=== PATIENT | female | born 1930 | race Caucasian/White ===

== ENCOUNTER 2017-08-18 07:47 | Day surgery (SDC) | payer OTHER ==
[~2017-08-18] VITALS: Ht 157.5 cm; Wt 46.3 kg
[2017-08-18] VITALS (8 sets, daily range): BP systolic 138–176; BP diastolic 67–80
--- NOTE | 2017-08-18 07:35 | Pre-Procedure Note/Attestation ---
Pre-Procedure Note/Attestation Complete Prior to Procedure Planned Procedure: left Procedure Narrative: cataract extraction with implant left eye Indications for Procedure Pre-Operative Diagnosis: cataract left eye Attestation I attest that I discussed the nature of the procedure; its benefits; risks and complications; and alternatives (and the risks and benefits of such alternatives ), prior to the procedure, with the patient (or the patient's legal personal service representative). I attest that, if there was a reasonable possibility of needing a blood transfusion, the patient (or the patient's legal personal service representative) was given the [facility] standardized written summary, pursuant to the [employer] Trudy Blood Safety Act ([place] Health and Safety Code # 1645, as amended). I attest that I re-evaluated the patient just prior to the surgery and that there has been no change in the patient's H&P, except as documented below: MATHEUS NAM Aug 18, 2017 07:35
[2017-08-18] MEDS ORDERED: Tobradex Opth Susp 2.5ml ONE (08:38)
[2017-08-18] MEDS ORDERED: Vigamox Opth Soln 3ml ONE (08:38)
[2017-08-18] MEDS ORDERED: Tropicamide 1% Opth 15ml Soln ONE (08:38)
[2017-08-18] MEDS ORDERED: Akten 3.5% 1ml Btl ONE (08:38)
[2017-08-18] MEDS ORDERED: Phenylephrine 2.5% Op 2ml Soln ONE (08:38)
[2017-08-18] MEDS ORDERED: Flurbiprofen 0.03% Opth Sol 2.5ml ONE (08:44)
[2017-08-18] MEDS: Tobradex Opth Susp 2.5ml LEFT EYE SCH ×3 (08:49→09:04)
[2017-08-18] MEDS: Akten 3.5% 1ml Btl LEFT EYE SCH ×3 (08:49→09:05)
[2017-08-18] MEDS: Tropicamide 1% Opth 15ml Soln LEFT EYE SCH ×3 (08:49→09:04)
[2017-08-18] MEDS: Flurbiprofen 0.03% Opth Sol 2.5ml LEFT EYE SCH ×3 (08:49→09:05)
[2017-08-18] MEDS: Phenylephrine 2.5% Op 2ml Soln LEFT EYE SCH ×3 (08:49→09:05)
[2017-08-18] MEDS: Vigamox Opth Soln 3ml LEFT EYE SCH ×3 (08:49→09:05)
[2017-08-18] MEDS ORDERED: OXYBUTYNIN CHLOR5 M1 ORAL (09:02)
[2017-08-18] MEDS ORDERED: METOPROLOL TART25 MG ORAL (09:02)
[2017-08-18] MEDS ORDERED: FERROUS SULFAT325 MG ORAL (09:04)
[2017-08-18] MEDS ORDERED: CALCIUM600 M1 PO (09:04)
[2017-08-18] MEDS ORDERED: MULTIVITAMINS1 EAC2 ORAL (09:04)
[2017-08-18] MEDS ORDERED: Midazolam HCl 50mg/10ml vial IV ONE (10:00)
[2017-08-18] MEDS ORDERED: NS Irrig 1000ml ONE (10:00)
[2017-08-18] MEDS ORDERED: LR 1000ml ONE (10:00)
[2017-08-18] MEDS ORDERED: Sterile Water Irrig 1000ml IRRIG ONE (10:00)
--- NOTE | 2017-08-18 10:34 | Brief Operative Note ---
Immediate Post Operative Note Operative Note Pre-op Diagnosis: cataract left eye Procedure: phacoemulsification of cataract with implant left eye Post-op Diagnosis: same as pre-op Surgeon: matheus shah Electromechanical Assembler: none Anesthesiologist: van sibley md Anesthesia: MAC Specimen: none Complications: none Condition: stable Fluids: 0 Estimated Blood Loss: none Drains: none Implant(s) used?: Yes MATHEUS SHAH Aug 18, 2017 10:34
--- NOTE | 2017-08-18 10:47 | Anethesia Preoperative Eval ---
Anesthesia Pre-op PMH/ROS General Date of Evaluation: Aug 18, 2017 Time of Evaluation: 09:49 Anesthesiologist: Paramjit ASA Score: ASA 2 Mallampati Score Class I : Soft palate, uvula, fauces, pillars visible Class II: Soft palate, uvula, fauces visible Class III: Soft palate, base of uvula visible Class IV: Only hard plate visible Mallampati Classification: Class II Surgeon: Guillermo Diagnosis: cataract left eye Surgical Procedure: left eye cataract removal with IOL Anesthesia History: none Family History: no anesthesia problems Allergies: Coded Allergies: NO KNOWN ALLERGIES (Unverified Allergy, Unknown, 09/17/15) Medications: see eMAR Past Medical History Cardiovascular: Reports: HTN Hematology/Immune: Reports: other - R breast CA ~ lumpectomy done 20 years ago Musculoskeletal/Integumentary: Reports: OA Anesthesia Pre-op Phys. Exam Physician Exam Last Vital Signs Date Time Temp Pulse Resp B/P (MAP) Pulse Ox O2 Delivery O2 Flow Rate FiO2 08/18/17 08:56 97.5 62 17 176/76 99 Room Air Constitutional: NAD Neurologic: CN 2-12 intact Cardiovascular: RRR Respiratory: CTA Gastrointestinal: S/NT/ND Airway Exam Mallampati Score: Class II MO: full ROM: full Teeth: missing - lower teeth , intact - implants upper teeth, lower teeth own Anesthesia Pre-op A/P Studies Pre-op Studies: EKG - NSB Risk Assessment & Plan Assessment: A&Ox3 Plan: mac Status Change Before Surgery: No Pre-Antibiotics Given Within 1 Hr of Incision: No Dacia Yusuf CRNA Aug 18, 2017 10:47
[2017-08-18] MEDS ORDERED: Dexamethasone 4mg/ml vial ONE (10:48)
[2017-08-18] MEDS ORDERED: BSS 500ml btl ONE (10:48)
[2017-08-18] MEDS ORDERED: Lidocaine 1% MPF 10mg/ml 5ml ONE (10:48)
[2017-08-18] MEDS ORDERED: Povidone-Iodine 5% opth solution ONE (10:49)
[2017-08-18] MEDS ORDERED: EPINEPHrine 1mg/1ml Amp ONE (10:49)
[2017-08-18] MEDS ORDERED: Sodium Hyaluronate 14 mg/ml 0.85ml ONE (10:49)
[2017-08-18] MEDS ORDERED: BSS 15ml BTL ONE (10:49)
--- NOTE | 2017-08-18 10:49 | 48 Hour Post Anesthesia Eval ---
Post Anesthesia Evaluation Date of Evaluation: Aug 18, 2017 Time of Evaluation: 10:49 Blood Pressure Systolic: 167 0: 73 Pulse Rate: 60 Respiratory Rate: 22 Temperature (Fahrenheit): 97.5 O2 Sat by Pulse Oximetry: 100 Airway: patent Nausea: No Vomiting: No Hydration Status: adequate Mental Status/LOC: patient returned to baseline Follow-up care needed: patient intructions given Dacia Yusuf CRNA Aug 18, 2017 10:49
--- NOTE | 2017-08-18 10:49 | Immediate Post-Op Evaluation ---
Immediate Post-Op Evalulation Immediate Post-Op Evalulation Date of Evaluation: Aug 18, 2017 Time of Evaluation: 10:38 IV Fluids: 400 ml Blood Products: 0 Estimated Blood Loss: 0 Urinary Output: 0 Blood Pressure Systolic: 166 Blood Pressure Diastolic: 80 Pulse Rate: 58 Respiratory Rate: 22 O2 Sat by Pulse Oximetry: 99 Temperature (Fahrenheit): 97.4 Pain Score (1-10): 0 Nausea: No Vomiting: No Patient Status: awake, reacts Hydration Status: adequate Given Within 1 Hr of Incision: No Dacia Yusuf CRNA Aug 18, 2017 10:49
--- NOTE | 2017-08-18 21:47 | Operative Note - Dictated ---
DATE OF OPERATION: 08/18/2017 PREOPERATIVE DIAGNOSIS: Cataract, left eye. POSTOPERATIVE DIAGNOSIS: Cataract, left eye. PROCEDURE: Phacoemulsification of cataract, left eye, with placement of posterior chamber intraocular lens. SURGEON: Mich Li M.D. ([facility] [place]) FRETTED INSTRUMENT MAKER HAND: None. ANESTHESIA: MAC/topical. ANESTHESIOLOGIST: Dacia Yusuf CRNA INDICATION FOR PROCEDURE: Poor vision, left eye. DESCRIPTION OF FINDINGS: Nuclear sclerotic and cortical cataract, left eye. DESCRIPTION OF PROCEDURE: The patient received a topical anesthetic block consisting of 3.5% Akten eye drops. The eye was then prepped and draped in the usual manner. A lid speculum was placed. An operating Zeiss microscope was positioned. A temporal corneal groove was made with the bang blade. A SuperSharp blade made a stab incision at the 6 o'clock position. A 0.1 mL of 1% nonpreserved intracameral lidocaine was injected. Healon was instilled into the anterior chamber and a 2.5/2.8 mm trapezoidal bang blade was used to complete the temporal corneal wound. A cystotome was used to create an anterior capsular flap. Utrata forceps were used to complete the capsulorrhexis. BSS on a cannula was used to hydrodissect the nucleus. The lens nucleus phacoemulsified in a phaco-fracture technique. Remaining cortical material of the I/A and the posterior capsule was polished with the I/A on Cap vac. Healon was instilled in the capsular bag and anterior chamber, and an Perez foldable one-piece posterior chamber intraocular lens, model ZCB00, power 25.0 diopter, serial #[id number] was placed in the injector. The lens was put into the capsular bag. The I/A tip was used to remove the Healon and position the lens. The wound edge was hydrated with BSS and a blunt-tip cannula. The wound was checked and found to be watertight. The lid speculum was removed, and a drop of TobraDex and Vigamox was placed. A clear plastic shield was taped over the eye. The patient tolerated the procedure well and left the operating room in good condition. Mich Li M.D. ([facility]) DR: TIFF JOB#: [id number] CC: MAXIMILIAN
== END 2017-08-18 12:10 | disposition home or self-care (01) ==
LOC: SUR 07:47
DX: H25.12 Age-related nuclear cataract, left eye (principal); Z79.82 Long term (current) use of aspirin; I10 Essential (primary) hypertension; M85.80 Other specified disorders of bone density and structure, unspecified site; Z90.710 Acquired absence of both cervix and uterus; Z84.89 Family history of other specified conditions; Z85.3 Personal history of malignant neoplasm of breast; M19.90 Unspecified osteoarthritis, unspecified site
CPT/HCPCS: 66984; J0171; J1100; J7120; V2632; 94003; 94150